=== PATIENT | female | born 1940 | race Caucasian/White ===

== ENCOUNTER → 2020-12-27 15:07 | Outpatient (CLI) | payer MEDICARE, OTHER, SELFPAY | PROVIDERS: PCP Family Medicine; Visit Provider Obstetrics & Gynecology | DX: N89.8 Other specified noninflammatory disorders of vagina (principal) | CPT/HCPCS: 87070; 87205 ==

== ENCOUNTER → 2021-12-19 12:34 | Outpatient (CLI) | payer MEDICARE, OTHER, SELFPAY ==
--- NOTE | 2021-12-19 | DI.MRI.S_ITS ---
PROCEDURE: MR LUMBAR SPINE WO CON INDICATIONS: Spinal stenosis, lumbar region with neurogenic claudication TECHNIQUE: Noncontrast sagittal T1 spin echo and T2 fast echo, sagittal STIR, and T2 fast spin echo through the lumbar spine. In cases with scoliosis, additional coronal T2 fast spin echo may be performed. COMPARISON: [facility], MR, MR LUMBAR SPINE WITH/WITHOUT CONTRAST, 01/06/2016, 9:00. [facility], CR, XR LUMBAR SPINE 2 OR 3 VIEWS, 01/11/2021, 11:05. FINDINGS: Image quality: Excellent. Alignment and Curvature: There is moderate rightward curvature of lumbar spine centered at L3 level. No significant spondylolisthesis is seen. Bone Marrow: Degenerative endplate changes are noted throughout lower thoracic and lumbar spine. No acute vertebral body compression fractures. Spinal Cord: Conus medullaris terminates at the L1 level. Visualized cord demonstrates normal signal and size. Paraspinous Soft Tissues: No paravertebral masses. T12-L1: Loss of disc height and disc signal is seen. No significant disc bulge, canal stenosis or neural foraminal narrowing. L1-L2: There is complete loss of disc height and disc signal. Broad-based disc bulge and bilateral facet arthrosis is seen with mild central canal stenosis, no significant neural foraminal narrowing. L2-L3: Loss of disc height and disc signal is noted. Broad-based disc bulge and bilateral facet arthrosis is seen causing moderate central canal stenosis and moderate to severe left-sided neural foraminal narrowing. [id number] right-sided neural foraminal narrowing is also seen. L3-L4: Loss of disc height and disc signal is noted. Broad-based disc bulge and bilateral facet arthrosis is seen causing [id number] central canal stenosis and moderate to severe bilateral neural foraminal narrowing. L4-L5: Loss of disc height and disc signal is seen. Broad-based disc bulge and bilateral facet arthrosis is noted with mild to moderate central canal stenosis and moderate to severe bilateral neural foraminal narrowing. L5-S1: Loss of disc height and disc signal is seen with broad-based disc bulge and bilateral facet arthrosis causing moderate to severe central canal stenosis and right worse than left bilateral neural foraminal narrowing. IMPRESSION: 1. [id number] rightward curvature of lumbar spine centered at L3 level. No acute compression fracture or significant listhesis. 2. Degenerative disc disease throughout lumbar spine causing moderate to severe central canal stenosis and bilateral neural foraminal narrowing most notably at L3-4 through L5-S1 levels as above. Dictated by: Elroy Vera M.D. on 12/19/2021 at 16:54 Approved by: Elroy Vera M.D. on 12/19/2021 at 17:03
== END ==
PROVIDERS: PCP Family Medicine; Referring Provider Physical Medicine & Rehabilitation; Visit Provider Physical Medicine & Rehabilitation
DX: M48.062 Spinal stenosis, lumbar region with neurogenic claudication (principal); M51.36 Other intervertebral disc degeneration, lumbar region
CPT/HCPCS: 72148

== ENCOUNTER → 2024-12-31 12:51 | Outpatient (CLI) | payer MEDICARE, OTHER, SELFPAY ==
--- NOTE | 2024-12-31 12:52 | DI.MRI.S_ITS ---
PROCEDURE: MR LUMBAR SPINE WO CON INDICATIONS: Low back pain TECHNIQUE: Noncontrast sagittal T1 spin echo and T2 fast echo, sagittal STIR, and T2 fast spin echo through the lumbar spine. In cases with scoliosis, additional coronal T2 fast spin echo may be performed. COMPARISON: [facility], MR, MR LUMBAR SPINE WO CON, 12/19/2021, 13:12. FINDINGS: Image quality: Excellent. Alignment and Curvature: Stable appearance of moderate dextroscoliosis with lateral translation of L4 on L3. There is also mild L5 anterolisthesis as well as L2 and L1 retrolisthesis. Bone Marrow: Marrow is of normal overall signal. No acute vertebral body compression fractures. Spinal Cord: Conus medullaris terminates at the L1 level. Visualized cord demonstrates normal signal and size. Paraspinous Soft Tissues: No paravertebral masses. T12-L1: Normal appearance. L1-L2: There is disc bulge as well as bilateral facet arthropathy and ligamentum flavum thickening. There is mild central stenosis as well as moderate left and mild right foraminal stenosis. L2-L3: There is disc bulge as well as bilateral facet arthropathy and ligamentum flavum thickening, with facet joint effusion on the right. There is moderate central spinal stenosis as well as severe left lateral recess and left foraminal stenosis, moderate on the right. L3-L4: There is disc bulge as well as bilateral facet arthropathy. There is probably prior left laminotomy at this level. There is mild to moderate central spinal stenosis as well as moderate to severe left lateral recess and moderate left foraminal stenosis, mild on the right. L4-L5: There is disc bulge as well as significant bilateral facet arthropathy and ligamentum flavum thickening. There is also probably prior left laminotomy at this level. There is severe central spinal stenosis as well as moderate to severe bilateral lateral recess and foraminal stenosis, more on left. L5-S1: There is disc bulge as well as bilateral facet arthropathy and ligamentum flavum thickening. There is moderate central spinal stenosis and moderate right lateral recess and right foraminal stenosis, mild on the left. IMPRESSION: 1. Significant dextroscoliosis with multilevel degenerative changes as above, with severe central spinal stenosis at L4-L5 as well as advanced lateral spinal stenosis seen especially on the left as above. This is essentially stable compared to prior study. 2. No new significant disc extrusion or acute osseous lesion seen. Dictated by: Torres Christina M.D. on 01/01/2025 at 17:13 Approved by: Torres Christina M.D. on 01/01/2025 at 17:23
== END ==
LOC: MRI 12:52
PROVIDERS: PCP Family Medicine; Referring Provider Family Medicine; Visit Provider Family Medicine
DX: M47.816 Spondylosis without myelopathy or radiculopathy, lumbar region (principal); M47.817 Spondylosis without myelopathy or radiculopathy, lumbosacral region; M41.9 Scoliosis, unspecified; M48.061 Spinal stenosis, lumbar region without neurogenic claudication; M48.07 Spinal stenosis, lumbosacral region; M54.50 Low back pain, unspecified; G95.19 Other vascular myelopathies
CPT/HCPCS: 72148